=== PATIENT | female | born 1965 | race Caucasian/White ===

== ENCOUNTER → 2017-10-05 08:46 | Outpatient (CLI) | payer OTHER, SELFPAY | PROVIDERS: Family Provider Family Medicine; PCP Family Medicine | DX: M50.221 Other cervical disc displacement at C4-C5 level (principal) | CPT/HCPCS: 72141 ==

== ENCOUNTER 2018-01-17 12:00 | Outpatient (RCR) | payer OTHER, SELFPAY ==
--- NOTE | 2017-12-31 12:28 | HP.PTEVAL ---
Patient's Visit Information ADDIS DONG is a 52 year old F referred to Physical Therapy by MARLEN WEST with a diagnosis of L neck pain.. Date of Evaluation: 12/31/17 Physical Therapist: Donny Burton DPT, OC - Visit Plan Frequency: 2x /Week Duration: 2-4 Weeks Plan: 2x/week for 3-4 weeks for: gradual supine towel reduction /retraction ex with manual traction and PROM neck.(Monitor L UE ROM and weakness, c/s ROM and subjective.). Scap and UE ROM when able. postural strength. Please use manual traction, ES and ice to control pain. - Subjective Subjective: Sent by doctor for bulging disc at c4c5. Catscan showed this. 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 Feel back and head hit floor and was squadded out. Has ROCHE form post concussive or possibly from disc bulge. HAs ROCHE ever since and never had them prior. Was out of work for three months. ROCHE: L frontal and eyes to 7/10 constant for 2.5 years. Neck pain: If sits too long is much worse, currently 8/10 neck and L shoulder into elbow described as burning. L hand goes numb 15x/day mostly when sitting and gone with walking. Has left work but still wroking most of time. Needs excess time to get words out at times. Turning head left grabs. Sleep is interrupted int hat she can't get comfortable. Work is limited in that she can't lift. Basic aDLs are mostly OK with pain, has to assist L UE with R to get back of R shoulder clean. 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 Feels better int he cold. cough and sneeze both hurt. No problems with bowel or bladder - Pain neck pain Pain Intensity (Out of 10): 2 Pain Intensity Range: 8 Comment: sit is worse ROCHE Pain Intensity (Out of 10): 6 Pain Intensity Range: 6, 7 - Objective Posture is forward head and protracted scapula. reflexes 2/3 bi and tri. Sensation diminished in L medial forarm hand to gross light touch. Very weak L UE wholly, thumb and wrist ex, flexion, intrinsics, biceps, tricep is OK and painful to move L shoulder and very limited scap ROM. L shoulder elevation to 125 L vs 160 R. C/S aROM ext 30 and pinch L, L rot 30 adn pinch, R rot 40,. Baseline ROCHE 08/20, neck pain /10, hand numb. Protrusion P burn L shoulder, Neck B , ROCHE NE, numbness B. retraction: unable. Supine baseline ROCHE 08/20, neck pain 08/20, no numbness. On three towels.: gradually down to 2 adn L UE is worse. Needed to go back to 3 towels. 15 minutes. At end 08/20 ROCHE. Neck pain: 8/10. Hand numbness came back upon sitting up. - Goals Goal 1:: ROCHE 75% better adn intermittent, Neck pain 2/10 at worst Goal Time Frame: 2-4 Weeks Goal 2:: C/S aROM to 50 rot and 55 ext without increased pain. Goal Time Frame: 2-4 Weeks Goal 3:: Sleep without waking. Goal Time Frame: 2-4 Weeks Goal 4:: Sit to do job without increased symptoms. Goal Time Frame: 2-4 Weeks - Rehabilitation Potential Physical Therapy Diagnosis: L discal pathology. Rehabilitation Potential: Good - Anticipated Interventions Patient/Client Instruction: Educate patient on: Condition, Plan of Care For the Purpose of:: To decrease pain, To increase ROM, To improve nutrient delivery to tissue, To increase tolerance to activity/condition/position, To improve ability of physical actions for home/community/work/leisure Therapeutic Exercise to Include: Strength training, Postural training, Passive ROM, Active ROM, Jaydon Exercises For the Purpose of:: To decrease pain, To increase ROM, To increase tolerance to activity/condition/position, To improve ability of physical actions for home/community/work/leisure Manual Therapy Techniques to Include: Mobilization, Passive ROM Comment: manual traction c/s For the Purpose of:: To decrease pain, To increase ROM TENS: Yes Cryotherapy (ice pack, ice massage): Yes For the Purpose of:: To decrease pain, To increase ROM Thank you for the opportunity to evaluate your patient. For Medicare and Medicare HMO plans, please review the plan of care and approve it. It will need to be FAXED BACK to us at [phone] for Medicare purposes. Please let me know if there are questions or concerns regarding this plan of care. Physician Signature: Date:
--- NOTE | 2018-01-17 13:06 | HP.PTREVAL ---
MARLEN WEST, It has been my pleasure to treat ADDIS DONG over the last 5 visits for L neck pain.. Please see the progress note below for an update on the physical therapy plan of care! Subjective: Pt reports that EMG showed no signs of nerve damage. However, some pinching on the nerve seemed likely. Objective/Function: Left lateral flexion mobilization increased left neck pain- no worse. Trialed this to see if there was potentially a lateral component. Left rotation range more limited passively today. Able to achieve full supine position without towel rolls post though. Plan Plan: Re-check with Donny Burton DPT. Goals Goal 1:: ROCHE 75% better adn intermittent, Neck pain 2/10 at worst Goal Time Frame: 2-4 Weeks Goal Progress: Not Progressing Goal 2:: C/S aROM to 50 rot and 55 ext without increased pain. Goal Time Frame: 2-4 Weeks Goal Progress: Not Progressing Goal 3:: Sleep without waking. Goal Time Frame: 2-4 Weeks Goal Progress: Not Progressing Goal 4:: Sit to do job without increased symptoms. Goal Time Frame: 2-4 Weeks Goal Progress: Not Progressing Anticipated Interventions Patient/Client Instruction: Educate patient on: Condition, Plan of Care For the Purpose of:: To decrease pain, To increase ROM, To improve nutrient delivery to tissue, To increase tolerance to activity/condition/position, To improve ability of physical actions for home/community/work/leisure Therapeutic Exercise to Include: Strength training, Postural training, Passive ROM, Active ROM, Jaydon Exercises For the Purpose of:: To decrease pain, To increase ROM, To increase tolerance to activity/condition/position, To improve ability of physical actions for home/community/work/leisure Manual Therapy Techniques to Include: Mobilization, Passive ROM Comment: manual traction c/s For the Purpose of:: To decrease pain, To increase ROM TENS: Yes Cryotherapy (ice pack, ice massage): Yes For the Purpose of:: To decrease pain, To increase ROM Please do not hesitate to contact me at [phone] by phone or if you have questions or concerns regarding this new plan of care! Sincerely, Donny Burton, DPT, OC
--- NOTE | 2018-04-17 10:54 | HP.PT.NRP ---
HP - Discharge Summary (1) - Patient Information ADDIS DONG was seen in my office for initial evaluation on 12/31/17. The following Plan of Care was established for this patient: Initial Frequency: 2x /Week Initial Duration: 2-4 Weeks - Anticipated Interventions Patient/Client Instruction: Educate patient on: Condition, Plan of Care For the Purpose of:: To decrease pain, To increase ROM, To improve nutrient delivery to tissue, To increase tolerance to activity/condition/position, To improve ability of physical actions for home/community/work/leisure Therapeutic Exercise to Include: Strength training, Postural training, Passive ROM, Active ROM, Jaydon Exercises For the Purpose of:: To decrease pain, To increase ROM, To increase tolerance to activity/condition/position, To improve ability of physical actions for home/community/work/leisure Manual Therapy Techniques to Include: Mobilization, Passive ROM Comment: manual traction c/s For the Purpose of:: To decrease pain, To increase ROM TENS: Yes Cryotherapy (ice pack, ice massage): Yes For the Purpose of:: To decrease pain, To increase ROM This patient was last seen in our office 01/17/19. Pertinent comments regarding their Physical therapy will appear below: Pt seen 5 visits of POC but did not attend any further visits. At this point, it has been over 3 months and I will disocntinue due to nonattendance. At this point I will be discontinuing this patient from physical therapy. I would be happy to see this patient again in the future if found appropriate by the physician. Thank you! Donny Burton, DPT, OCS, CSCS
== END 2018-01-17 17:00 | disposition home or self-care (01) ==
LOC: PT 12:00
PROVIDERS: Family Provider Family Medicine; PCP Family Medicine
DX: M50.221 Other cervical disc displacement at C4-C5 level (principal); S16.1XXD Strain of muscle, fascia and tendon at neck level, subsequent encounter
CPT/HCPCS: 97014; 97110; 97140; 97162; 97530; G0283

== ENCOUNTER → 2019-12-29 15:40 | Outpatient (CLI) | payer OTHER, SELFPAY ==
[2015-06-13 12:05] VITALS: BMI 23.6
== END ==
PROVIDERS: PCP Family Medicine; Referring Provider Family Medicine; Visit Provider Family Medicine
DX: J01.90 Acute sinusitis, unspecified (principal)
CPT/HCPCS: 87635; U0003

== ENCOUNTER → 2022-05-15 | Outpatient (CLI) | payer OTHER, SELFPAY ==
--- NOTE | 2022-05-15 10:10 | RAD_ITS ---
INDICATION: ACUTE PAIN AND INJURY EXAMINATION/TECHNIQUE: X-RAY - RIGHT XR Knee 3 Views 3 VIEWS COMPARISON: None. FINDINGS: SOFT TISSUES: No soft tissue swelling or gas. No radiopaque foreign body. BONES/JOINTS: No acute fracture or subluxation.. Normal alignment. Preservation of the joint space.. No sclerotic or destructive changes observed. RAD/Knee 3 Views IMPRESSION: Negative. Electronically Signed: Amirah Blanca MD at 8:51 EDT ,
== END | disposition home or self-care (01) ==
PROVIDERS: PCP Family Medicine; Referring Provider Nurse Practitioner Family; Visit Provider Nurse Practitioner Family
DX: M25.561 Pain in right knee (principal)
CPT/HCPCS: 73562

== ENCOUNTER → 2023-05-09 | Outpatient (CLI) | payer OTHER, SELFPAY ==
--- NOTE | 2023-05-09 16:04 | RAD_ITS ---
STUDY: X-RAY - PELVIS AND RIGHT HIP REASON FOR EXAM: Female, 57 years old. 3 week history of right hip pain. TECHNIQUE: 3 views of the pelvis and hip. COMPARISON: None. FINDINGS: There is a non-specific bowel gas pattern. Normal visualized soft tissue structures. Normal bilateral iliac wings, sacroiliac joints and visualized sacrum. Normal bilateral superior and inferior pubic rami. Normal pubic symphysis. Normal bilateral ischial tuberosities. Normal visualized femoral head. Normal acetabulum. There is mild articular joint space narrowing of the hip. RAD/HIP, UNI W/ Pelvis 2-3 Views IMPRESSION: Mild degree of right hip joint narrowing. Electronically Signed: Daniele Pitts MD at 11:44 EDT ,
== END | disposition home or self-care (01) ==
LOC: MTRAD 16:03
PROVIDERS: PCP Family Medicine; Referring Provider Family Medicine; Visit Provider Family Medicine
DX: M25.551 Pain in right hip (principal)
CPT/HCPCS: 73502

== ENCOUNTER → 2023-05-10 | Outpatient (CLI) | payer OTHER, SELFPAY ==
[2023-05-10 10:18] LABS: Anion Gap 6 (5-15); BUN 9 mg/dL (7-18); BUN/Creat Ratio 9.9 RATIO (10-20); Calcium,Total 9.9 mg/dL (8.5-10.1); Chloride 105 mmol/L (98-107); Cholesterol 220 mg/dL (200); Creatinine, Serum 0.91 mg/dL (0.55-1.02); EST Glomerular Filtration Rate 68 mL/min (>60); Est Glom Filt Rate - Afr Amer 82 mL/min (>60); Glucose 100 mg/dL (74-106); High Density Lipoprotein 39 mg/dL; Potassium 3.8 mmol/L (3.5-5.1); Sodium Level 136 mmol/L (136-145); Triglycerides 149 mg/dL; Very Low Density Lipoprotein 30 mg/dL (5-40)
== END | disposition home or self-care (01) ==
LOC: MTLAB 07:11
PROVIDERS: PCP Family Medicine; Referring Provider Family Medicine; Visit Provider Family Medicine
DX: Z00.00 Encounter for general adult medical examination without abnormal findings (principal)
CPT/HCPCS: 36415; 80048; 80061